=== PATIENT | female | born 1985 | race Asian ===

== ENCOUNTER 2024-04-25 16:02 | Emergency (ER) | payer BC ==
[~2024-04-25] VITALS: Ht 152.4 cm; Wt 53.5 kg
[2024-04-25 16:25] VITALS: BP_SYST 104; PULSE 84; RESP 15; TEMP 97.5; O2SAT 97
[2024-04-25 17:01] LABS: BASOPHILS # (AUTO) 0.1 K/uL (0.0-0.2); BASOPHILS % (AUTO) 0.9 % (0.0-2.0); EOSINOPHILS # (AUTO) 0.6 K/uL (0.0-0.4); EOSINOPHILS % (AUTO) 6.5 % (0.0-4.0); HEMATOCRIT 36.7 % (36-48); HEMOGLOBIN 12.6 g/dL (12.0-16.0); LYMPHOCYTES # (AUTO) 3.1 K/uL (1.0-5.5); LYMPHOCYTES % (AUTO) 36.7 % (20.5-51.5); MEAN CORPUSCULAR HEMOGLOBIN 31 pg (27-31); MEAN CORPUSCULAR HGB CONC 35 % (32-36); MEAN CORPUSCULAR VOLUME 89 fL (79.0-98.0); MONOCYTES # (AUTO) 0.7 K/uL (0.0-1.0); MONOCYTES % (AUTO) 8.2 % (1.7-9.3); NEUTROPHILS # (AUTO) 4.1 K/uL (1.8-7.7); NEUTROPHILS % (AUTO) 47.7 % (40.0-70.0); PLATELET COUNT (AUTO) 417 K/uL (130-430); RED BLOOD CELL COUNT(AUTO) 4.13 MIL/uL (4.2-6.2); RED CELL DISTRIBUTION WIDTH 14.1 % (9.0-15.0); WHITE BLOOD COUNT (AUTO) 8.5 K/uL (4.8-10.8)
[2024-04-25] MEDS: HYDROcodone/ACETAMIN 10-325 MG TAB PO ONE (17:20)
[2024-04-25] MEDS: IBUPROFEN 800 MG TABLET PO ONE (17:20)
[2024-04-25 17:26] LABS: CALCIUM 8.3 mg/dL (8.4-11.0); CREATININE 0.74 mg/dL (0.55-1.30); POTASSIUM 4.1 mmol/L (3.5-5.1)
[2024-04-25 17:35] LABS: ERYTHROCYTE SEDIMENTATION RATE 4 MM/HR (0-20)
[2024-04-25] MEDS ORDERED: HYDR-3917 PO (18:05)
[2024-04-25] MEDS ORDERED: IBUP-1969 PO (18:05)
== END 2024-04-25 18:14 | disposition home or self-care (01) ==
LOC: SED 16:02
DX: R51.9 Headache, unspecified (principal); R11.0 Nausea; Z88.2 Allergy status to sulfonamides; Z88.8 Allergy status to other drugs, medicaments and biological substances
CPT/HCPCS: 36415; 70450-TC; 80048; 81025; 85025; 85651; 99284